=== PATIENT | female | born 1960 | race Two or more races ===

== ENCOUNTER 2020-07-13 20:34 | Emergency (ER) | payer OTHER, MEDICAID ==
[~2020-07-13] VITALS: Ht 144.8 cm; Wt 71.2 kg
[2020-07-13] MEDS ORDERED: LORazepam 2MG/ML-1ML VIAL IV ONE (21:45)
[2020-07-13] MEDS ORDERED: SODIUM CHLORIDE 0.9% 1,000 ML IV ONE (21:45)
[2020-07-13 22:03] LABS: Basophils # (auto) 0 10 ^3/uL (0-0.2); Basophils % (auto) 0.4 % (0.0-2.0); Eosinophils # (auto) 0.3 10 ^3/uL (0-0.8); Eosinophils % (auto) 4.2 % (0.0-7.0); Hematocrit 34.2 % (36.0-46.0); Hemoglobin 11.7 g/dL (12.2-16.2); Lymphocytes # (auto) 2.8 10 ^3/uL (0.4-5.4); Lymphocytes % (auto) 36.6 % (10.0-50.0); Mean Corpuscular Hemoglobin 30.2 pg (28.0-32.0); Mean Corpuscular Hgb Conc. 34.3 g/dL (32.0-36.0); Mean Corpuscular Volume 88.1 fL (80.0-100.0); Monocytes # (auto) 0.7 10 ^3/uL (0-1.3); Monocytes % (auto) 9.3 % (0.0-12.0); Neutrophils # (auto) 3.8 10 ^3/uL (1.6-8.6); Neutrophils % (auto) 49.5 % (37.0-80.0); Platelet Count (auto) 242 10^3/uL (140-450); Red Blood Cells 3.88 10^6/uL (4.0-5.20); Red Cell Distribution Width 13.5 % (11.8-14.3); White Blood Cell 7.7 10^3/uL (4.4-10.8)
[2020-07-13 22:23] LABS: Albumin 3.5 g/dL (3.4-5.0); Anion Gap 10 (5-15); BUN/Creatinine Ratio 11.3; Blood Urea Nitrogen 7 mg/dL (7-18); Calcium 8.8 mg/dL (8.5-10.1); Carbon Dioxide 22 mmol/L (21-32); Chloride 109 mmol/L (98-107); GFR African American 126 mL/min; GFR Non-African American 104 mL/min; Glucose 82 mg/dL (74-106); Potassium 3.3 mmol/L (3.5-5.1); Sodium 141 mmol/L (136-145)
[2020-07-13 22:28] LABS: Alanine Aminotransferase 23 U/L (13-56); Alkaline Phosphatase 92 U/L (45-117); Aspartate Aminotransferase 18 U/L (15-37); Bilirubin, Total 0.2 mg/dL (0.2-1.0); Creatine Kinase IFCC 72 U/L (26-192); Total Protein 7.2 g/dL (6.4-8.2)
[2020-07-13 22:45] LABS: Urine Bacteria NONE SEEN /hpf (None Seen); Urine Blood Negative /uL (Negative); Urine Specific Gravity 1.004 (1.001-1.035); Urine WBC <1 /hpf (0 - 5)
[2020-07-13] MEDS ORDERED: IOHEXOL 300 MG/ML 100ML BOTTLE IJ ONE (23:33)
[2020-07-14 00:15] VITALS: BP 118/52
[2020-07-14] MEDS ORDERED: OXYCODONE W/ ACETAMINOPHEN 5/325MG TABLET PO ONE (00:45)
== END 2020-07-14 01:05 | disposition home or self-care (01) ==
LOC: EDBD 20:34 → ER 20:34
DX: F11.23 Opioid dependence with withdrawal (principal); R07.9 Chest pain, unspecified; F41.9 Anxiety disorder, unspecified; G89.4 Chronic pain syndrome; I10 Essential (primary) hypertension; Z90.49 Acquired absence of other specified parts of digestive tract; Z90.710 Acquired absence of both cervix and uterus
CPT/HCPCS: 36415; 71045; 74177; 80053; 80329; 81001; 82550; 83605; 83880; 84484; 85025; 93005; 96361; 96374; 99285; J2060; J7030; Q9967

== ENCOUNTER 2022-05-22 13:45 | Inpatient (IN) | payer OTHER, MEDICAID ==
[~2022-05-22] VITALS: Ht 144.8 cm; Wt 75.2 kg
[2022-05-22 14:50] LABS: Calcium 9.8 mg/dL (8.5-10.1)
[2022-05-22 14:52] LABS: BUN/Creatinine Ratio 17.2
[2022-05-22 15:02] LABS: Basophils # (auto) 0.1 10 ^3/uL (0-0.2); Basophils % (auto) 0.6 % (0.0-2.0); Eosinophils # (auto) 0.2 10 ^3/uL (0-0.8); Eosinophils % (auto) 1.9 % (0.0-7.0); Hemoglobin 12.1 g/dL (12.2-16.2); Lymphocytes % (auto) 17.7 % (10.0-50.0); Mean Corpuscular Hemoglobin 30.6 pg (28.0-32.0); Mean Corpuscular Hgb Conc. 34.4 g/dL (32.0-36.0); Mean Corpuscular Volume 88.8 fL (80.0-100.0); Monocytes # (auto) 0.6 10 ^3/uL (0-1.3); Monocytes % (auto) 5.7 % (0.0-12.0); Neutrophils # (auto) 8.2 10 ^3/uL (1.6-8.6); Neutrophils % (auto) 74.1 % (37.0-80.0); Nucleated Red Blood Cells % 0.1 %; Red Blood Cells 3.95 10^6/uL (4.0-5.20); Red Cell Distribution Width 13.3 % (11.8-14.3)
[2022-05-22 15:05] LABS: Bilirubin, Total 0.4 mg/dL (0.2-1.0); Total Protein 7.2 g/dL (6.4-8.2)
[2022-05-22] MEDS ORDERED: FUROSEMIDE 40 MG/4 ML VIAL IV ONE (16:00)
[2022-05-22] MEDS ORDERED: SODIUM CHLORIDE 0.9% 1,000 ML IV ONE ×2 (16:00)
[2022-05-22] MEDS ORDERED: KETOROLAC TROMETH 30 MG/ML 1ML VIAL IV ONE (16:00)
[2022-05-22] MEDS ORDERED: TAMSULOSIN HYDROCHLORIDE 0.4 MG CAP PO ONE (19:00)
[2022-05-22] MEDS ORDERED: ONDANSETRON HCL 4 MG/2 ML VIAL IV PRN (19:00)
[2022-05-22] MEDS ORDERED: MANNITOL FTV 25% 12.5 GM/50 ML 50 ML IV ONE (19:00)
[2022-05-22] MEDS ORDERED: ACETAMINOPHEN 325 MG TAB PO PRN (19:00)
[2022-05-22] MEDS ORDERED: ATOR40TA52 PO (19:07)
[2022-05-22] MEDS ORDERED: GABA800T97 PO (19:07)
[2022-05-22] MEDS ORDERED: DEXTROSE (50%) 50ML SYRG IV PRN (19:15)
[2022-05-22] MEDS ORDERED: PANTOPRAZOLE 40 MG/10 ML VIAL INJ IV ONE (19:15)
[2022-05-22] MEDS ORDERED: cefTRIAXone 1GM/50ML D5W 50 ML IV ONE (19:15)
[2022-05-22 19:31] LABS: Cholesterol 134 mg/dL (< 200)
[2022-05-22 19:34] LABS: HDL Cholesterol 55 mg/dL (40-59); LDL Cholesterol 73 mg/dL (< 100); Triglycerides 116 mg/dL (< 150)
[2022-05-22] MEDS: SODIUM CHLORIDE 0.9% 1,000 ML IV SCH (23:44)
[2022-05-22] MEDS: ACCU-CHEK COMFORT CURVE STRIP VI SCH (23:59)
[2022-05-22] MEDS: InsuLIN REG 1unit/0.01ml Soln (100units/ml) SC SCH (23:59)
[2022-05-23] VITALS (7 sets, daily range): BP systolic 121–155; BP diastolic 52–69
[2022-05-23] MEDS: GABAPENTIN 400 MG CAP PO SCH ×4 (00:19→21:42)
[2022-05-23 00:55] LABS: Urine Bacteria FEW /hpf (None Seen); Urine Blood 3+ /uL (Negative); Urine Mucus FEW (None Seen); Urine Specific Gravity 1.013 (1.001-1.035); Urine WBC 21 /hpf (0 - 5)
[2022-05-23] MEDS: SODIUM CHLORIDE 0.9% 1,000 ML IV SCH ×3 (03:20→20:45)
[2022-05-23] MEDS: HYDROcodone-ACET 5/325MG TAB PO PRN ×3 (05:38→21:36)
[2022-05-23] MEDS: ACCU-CHEK COMFORT CURVE STRIP VI SCH ×4 (06:58→21:41)
[2022-05-23] MEDS: InsuLIN REG 1unit/0.01ml Soln (100units/ml) SC SCH ×4 (06:59→21:42)
[2022-05-23] MEDS ORDERED: METF-370 PO (07:24)
[2022-05-23] MEDS ORDERED: QUET1TAB11 PO (07:24)
[2022-05-23] MEDS ORDERED: DULO1CAP5 PO (07:24)
[2022-05-23] MEDS ORDERED: HYDR-4798 (07:24)
[2022-05-23] MEDS ORDERED: OMEP20TA PO (07:41)
[2022-05-23 08:02] LABS: Basophils # (auto) 0 10 ^3/uL (0-0.2); Basophils % (auto) 0.3 % (0.0-2.0); Eosinophils # (auto) 0.2 10 ^3/uL (0-0.8); Eosinophils % (auto) 2.2 % (0.0-7.0); Hematocrit 35.9 % (36.0-46.0); Hemoglobin 12.1 g/dL (12.2-16.2); Lymphocytes # (auto) 1.4 10 ^3/uL (0.4-5.4); Lymphocytes % (auto) 16.7 % (10.0-50.0); Mean Corpuscular Hemoglobin 29.9 pg (28.0-32.0); Mean Corpuscular Hgb Conc. 33.6 g/dL (32.0-36.0); Mean Corpuscular Volume 88.9 fL (80.0-100.0); Monocytes # (auto) 0.7 10 ^3/uL (0-1.3); Monocytes % (auto) 8.2 % (0.0-12.0); Neutrophils # (auto) 5.9 10 ^3/uL (1.6-8.6); Neutrophils % (auto) 72.6 % (37.0-80.0); Red Blood Cells 4.04 10^6/uL (4.0-5.20); Red Cell Distribution Width 12.9 % (11.8-14.3); White Blood Cell 8.1 10^3/uL (4.4-10.8)
[2022-05-23 08:08] LABS: Albumin 3.4 g/dL (3.4-5.0); Calcium 8.8 mg/dL (8.5-10.1); Potassium 3.7 mmol/L (3.5-5.1)
[2022-05-23 08:12] LABS: BUN/Creatinine Ratio 16.7; Bilirubin, Total 0.5 mg/dL (0.2-1.0); Total Protein 6.9 g/dL (6.4-8.2)
[2022-05-23] MEDS: ATORVASTATIN 20 MG TAB PO SCH (09:17)
[2022-05-23] MEDS: cefTRIAXone 1GM/50ML D5W 50 ML IV SCH (09:17)
[2022-05-23] MEDS ORDERED: ENOXAPARIN SOD 40 MG/0.4 ML SYRINGE SC SCH (10:00)
[2022-05-23] MEDS ORDERED: PANTOPRAZOLE 40 MG/10 ML VIAL INJ IV SCH (10:00)
[2022-05-23] MEDS ORDERED: MANNITOL FTV 25% 12.5 GM/50 ML 50 ML IV ONE (10:45)
[2022-05-23] MEDS ORDERED: DULoxetine HCL 30 MG CAP PO ONE (10:45)
[2022-05-23] MEDS: TAMSULOSIN HYDROCHLORIDE 0.4 MG CAP PO SCH (18:22)
[2022-05-24] MEDS: SODIUM CHLORIDE 0.9% 1,000 ML IV SCH ×2 (00:21→10:06)
[2022-05-24] MEDS: ACCU-CHEK COMFORT CURVE STRIP VI SCH ×4 (03:46→21:59)
[2022-05-24] MEDS: InsuLIN REG 1unit/0.01ml Soln (100units/ml) SC SCH ×4 (03:46→22:03)
[2022-05-24] MEDS: HYDROcodone-ACET 5/325MG TAB PO PRN ×4 (03:47→22:00)
[2022-05-24] MEDS: GABAPENTIN 400 MG CAP PO SCH ×3 (03:48→22:17)
[2022-05-24 05:00] VITALS: BP 127/60
[2022-05-24 06:30] LABS: Potassium 3.5 mmol/L (3.5-5.1)
[2022-05-24 06:35] LABS: BUN/Creatinine Ratio 11.4; Calcium 8.9 mg/dL (8.5-10.1)
[2022-05-24 09:00] VITALS: BP 154/64
[2022-05-24] MEDS: DULoxetine HCL 30 MG CAP PO SCH (09:57)
[2022-05-24] MEDS: ATORVASTATIN 20 MG TAB PO SCH (09:57)
[2022-05-24] MEDS: hydrALAZINE HCL 20 MG/ML VL IV PRN ×2 (09:58→22:18)
[2022-05-24] MEDS: cefTRIAXone 1GM/50ML D5W 50 ML IV SCH (09:59)
[2022-05-24] MEDS ORDERED: MANNITOL FTV 25% 12.5 GM/50 ML 50 ML IV ONE (10:45)
[2022-05-24] MEDS: MORPHINE SULFATE INJ 2 MG/ml SYRG IV PRN ×2 (11:42→18:36)
[2022-05-24 12:50] VITALS: BP 127/47
[2022-05-24 16:45] VITALS: BP 142/53
[2022-05-24] MEDS: TAMSULOSIN HYDROCHLORIDE 0.4 MG CAP PO SCH (16:57)
[2022-05-24 22:00] VITALS: BP 159/59
[2022-05-25] MEDS: HYDROcodone-ACET 5/325MG TAB PO PRN ×4 (02:30→21:23)
[2022-05-25] MEDS ORDERED: BUSP5TAB51 PO (02:33)
[2022-05-25 05:00] VITALS: BP 131/61
[2022-05-25 05:17] LABS: Basophils # (auto) 0 10 ^3/uL (0-0.2); Basophils % (auto) 0.3 % (0.0-2.0); Eosinophils # (auto) 0.1 10 ^3/uL (0-0.8); Eosinophils % (auto) 0.9 % (0.0-7.0); Hematocrit 32.6 % (36.0-46.0); Hemoglobin 11.3 g/dL (12.2-16.2); Lymphocytes # (auto) 1.3 10 ^3/uL (0.4-5.4); Lymphocytes % (auto) 14.8 % (10.0-50.0); Mean Corpuscular Hemoglobin 30.4 pg (28.0-32.0); Mean Corpuscular Hgb Conc. 34.8 g/dL (32.0-36.0); Mean Corpuscular Volume 87.4 fL (80.0-100.0); Monocytes # (auto) 0.9 10 ^3/uL (0-1.3); Neutrophils # (auto) 6.7 10 ^3/uL (1.6-8.6); Nucleated Red Blood Cells % 0.1 %; Red Blood Cells 3.73 10^6/uL (4.0-5.20); Red Cell Distribution Width 13.1 % (11.8-14.3); White Blood Cell 9.1 10^3/uL (4.4-10.8)
[2022-05-25 05:32] LABS: BUN/Creatinine Ratio 17.1; Calcium 8.9 mg/dL (8.5-10.1); Potassium 3.1 mmol/L (3.5-5.1)
[2022-05-25 05:37] LABS: INR 0.98 (0.9-1.15); Partial Thromboplastin Time 30.5 sec (24.6-33.4)
[2022-05-25] MEDS: InsuLIN REG 1unit/0.01ml Soln (100units/ml) SC SCH ×4 (07:00→21:23)
[2022-05-25] MEDS: SODIUM CHLORIDE 0.9% 1,000 ML IV SCH ×3 (07:18→18:01)
[2022-05-25] MEDS: ACCU-CHEK COMFORT CURVE STRIP VI SCH ×4 (07:20→21:20)
[2022-05-25] MEDS: GABAPENTIN 400 MG CAP PO SCH ×3 (07:20→21:20)
[2022-05-25] MEDS: cefTRIAXone 1GM/50ML D5W 50 ML IV SCH (07:21)
[2022-05-25 09:00] VITALS: BP 125/53
[2022-05-25 09:17] LABS: Albumin 3.2 g/dL (3.4-5.0); Potassium 3.1 mmol/L (3.5-5.1)
[2022-05-25 09:20] LABS: Bilirubin, Total 0.3 mg/dL (0.2-1.0); Total Protein 6.9 g/dL (6.4-8.2)
[2022-05-25] MEDS: DULoxetine HCL 30 MG CAP PO SCH (10:41)
[2022-05-25 13:00] VITALS: BP 130/61
[2022-05-25 17:00] VITALS: BP 145/63
[2022-05-25] MEDS: TAMSULOSIN HYDROCHLORIDE 0.4 MG CAP PO SCH (18:04)
[2022-05-25 22:00] VITALS: BP 155/64
[2022-05-26] MEDS: SODIUM CHLORIDE 0.9% 1,000 ML IV SCH ×3 (04:32→13:03)
[2022-05-26] MEDS: HYDROcodone-ACET 5/325MG TAB PO PRN ×3 (04:33→15:09)
[2022-05-26 05:00] VITALS: BP 140/74
[2022-05-26] MEDS: GABAPENTIN 400 MG CAP PO SCH (06:00)
[2022-05-26] MEDS: ACCU-CHEK COMFORT CURVE STRIP VI SCH ×3 (06:34→17:35)
[2022-05-26] MEDS: InsuLIN REG 1unit/0.01ml Soln (100units/ml) SC SCH ×3 (06:34→17:00)
[2022-05-26] MEDS: cefTRIAXone 1GM/50ML D5W 50 ML IV SCH (08:57)
[2022-05-26 09:00] VITALS: BP 143/58
[2022-05-26] MEDS ORDERED: busPIRone HCL 10 MG TAB PO SCH (10:00)
[2022-05-26] MEDS: DULoxetine HCL 30 MG CAP PO SCH (10:24)
[2022-05-26 13:00] VITALS: BP 152/50
[2022-05-26] MEDS ORDERED: CEPH-510 PO (14:38)
[2022-05-26] MEDS ORDERED: TAM04C PO (14:38)
[2022-05-26] MEDS ORDERED: GABAPENTIN 300 MG CAP PO ONE (14:45)
[2022-05-26] MEDS: TAMSULOSIN HYDROCHLORIDE 0.4 MG CAP PO SCH (17:35)
[2022-05-26 18:40] VITALS: BP 159/59
[2022-05-26] MEDS ORDERED: GABAPENTIN 400 MG CAP PO SCH (22:00)
== END 2022-05-26 19:20 | disposition home or self-care (01) | DRG 872 ==
LOC: ER 13:45 → EDBD 13:45 → OVERFLOW 19:01 → CENTRAL 23:27
PROVIDERS: ADMIT Registered Nurse; ATTEND Internal Medicine
DX: A41.9 Sepsis, unspecified organism (principal); N13.6 Pyonephrosis; E11.9 Type 2 diabetes mellitus without complications; E66.01 Morbid (severe) obesity due to excess calories; I10 Essential (primary) hypertension; Z20.822 Contact with and (suspected) exposure to COVID-19; K40.20 Bilateral inguinal hernia, without obstruction or gangrene, not specified as recurrent; F41.9 Anxiety disorder, unspecified; G89.4 Chronic pain syndrome; K42.9 Umbilical hernia without obstruction or gangrene; E78.5 Hyperlipidemia, unspecified; M19.90 Unspecified osteoarthritis, unspecified site; M79.7 Fibromyalgia; Z90.49 Acquired absence of other specified parts of digestive tract; Z90.710 Acquired absence of both cervix and uterus; Z79.84 Long term (current) use of oral hypoglycemic drugs; Z79.899 Other long term (current) drug therapy; Z68.35 Body mass index [BMI] 35.0-35.9, adult
CPT/HCPCS: 36415; 74018; 74176; 76775; 80048; 80053; 80061; 81001; 82962; 83036; 83615; 84443; 84484; 85025; 85610; 85730; 87040; 87077; 87086; 87088; 87186; 87426; 93005; 96365; 96375; C9113; G0378; J0696; J1815